=== PATIENT | female | born 1990 | race Caucasian/White ===

== ENCOUNTER → 2017-08-26 | Outpatient (REF) | payer OTHER | LOC: M SFHCLERA 10:57 | DX: R68.89 Other general symptoms and signs (principal) ==

== ENCOUNTER → 2018-08-26 | Outpatient (REF) | payer BC, OTHER | LOC: M LAB REF 12:33 | PROVIDERS: ATTEND Physician Assistant | DX: J02.9 Acute pharyngitis, unspecified (principal) ==

== ENCOUNTER → 2018-12-11 | Outpatient (REF) | payer BC | LOC: M SFHCLERA 16:37 | PROVIDERS: ATTEND Physician Assistant | DX: J02.9 Acute pharyngitis, unspecified (principal) ==

== ENCOUNTER 2019-06-19 09:35 | Emergency (ER) | payer BC ==
[~2019-06-19] VITALS: Ht 165.1 cm; Wt 98.8 kg
[2019-06-19] MEDS ORDERED: NORT1TAB3 (09:39)
[2019-06-19 10:52] LABS: BASO % 0.5 % (0.0-1.0); EOS # 0.6 10^3/uL (0.0-0.5); EOS % 7.5 % (0.0-3.0); HEMATOCRIT 46.1 % (36.0-47.0); HEMOGLOBIN 14.3 g/dl (12.0-15.5); LYMPH # 1.8 10^3/uL (1.5-5.0); LYMPH % 24.2 % (24.0-44.0); MEAN CORPUSCULAR HEMOGLOBIN 27.5 pg (27.0-33.0); MEAN CORPUSCULAR VOLUME 88.7 fl (80.0-96.0); MONO # 0.4 10^3/uL (0.0-0.8); MONO % 4.6 % (0.0-5.0); NEUTROPHILS # 4.7 10^3/uL (1.5-8.5); NEUTROPHILS % 62.8 % (36.0-66.0); PLATELET COUNT, AUTOMATED 391 10^3/uL (150-450); WHITE BLOOD COUNT 7.6 10^3/uL (4.0-10.0)
[2019-06-19 11:13] LABS: BLOOD UREA NITROGEN 15 MG/DL (7-18); CALCIUM LEVEL 9.1 MG/DL (8.5-10.1); CARBON DIOXIDE LEVEL 27 MEQ/L (21-32); CHLORIDE LEVEL 108 MEQ/L (98-107); CK-MB VALUE MASS < 1.0 NG/ML (<3.6); CPK CREATINE PHOSPHOKINASE 48 U/L (26-192); GLOMERULAR FILTRATION RATE > 60.0 (>60); GLUCOSE, FASTING 84 MG/DL (70-100); MB/CK RELATIVE INDEX 2.08 (< OR =4); POTASSIUM SERUM 4.6 MEQ/L (3.5-5.1); SODIUM LEVEL 143 MEQ/L (136-145); TROPONIN I < 0.02 NG/ML (< 0.10)
--- NOTE | 2019-06-19 11:19 | REP ---
Chest x-ray: Two views. History: Chest pain . Comparison study: No comparison . Findings: The lungs are well inflated and free of infiltrate. The pleural angles are sharp. The heart size is normal. Pulmonary vasculature is not increased. No significant bony abnormality is seen. Impression: Negative chest x-ray. Electronically Signed by Wilman Izaguirre MD 06/19/2019 11:10 A
[2019-06-19 11:21] LABS: HCG, SERUM QUALITATIVE NEGATIVE (NEGATIVE)
[2019-06-19] MEDS ORDERED: ISOVUE-370 76% 100ML VIAL (Q9967) As Ordered ONE (11:37)
--- NOTE | 2019-06-19 12:24 | REP ---
CT pulmonary angiogram: With IV contrast. History: Rule out pulmonary embolus. Comparison studies: No comparison chest CT. Comparison is made with today's chest x-ray. Contrast dose: 75 ML of Isovue [address] technique: Helical scanning is acquired and overlapping 1.5 mm and contiguous 3 mm axial images are reformatted. In addition, maximum intensity projection and multiplanar re-formation images are generated in sagittal and coronal imaging projections. CT pulmonary angiographic findings: There is good opacification of the pulmonary arterial tree. No vessel cutoff or filling defect is seen to suggest pulmonary embolism. Thoracic aorta enhances homogeneously and is morphologically intact. No pleural or pericardial effusion is seen. No hilar or mediastinal mass or adenopathy is observed. No infiltrate is seen. No pulmonary nodule or mass lesion is seen. No significant bony abnormality is appreciated. The visualized upper abdominal structures are unremarkable. No adrenal lesion is seen. Impression: No active disease. No CT evidence of pulmonary embolus. Electronically Signed by Wilman Izaguirre MD 06/19/2019 12:16 P
[2019-06-19 13:04] VITALS: BP 126/87
--- NOTE | 2019-06-19 22:10 | ECGEPIP ---
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
== END 2019-06-19 13:18 | disposition home or self-care (01) ==
LOC: M ED 09:35
DX: R07.89 Other chest pain (principal)
CPT/HCPCS: 71046; 71275; 80048; 82550; 82553; 84702; 84703; 85025; 85379; 93005; 99284; Q9967

== ENCOUNTER → 2019-06-20 | Outpatient (CLI) | payer BC ==
[~2019-06-20] MED LIST: NORT1TAB3
--- NOTE | 2019-06-20 14:02 | REP ---
Left foot series: Four views. History: Injury. Findings: Four views of the left foot demonstrate overall normal mineralization. No fracture or subluxation is seen. Impression: No fracture noted. Electronically Signed by Wilman Izaguirre MD 06/20/2019 01:53 P
== END ==
LOC: M LRY 13:27
PROVIDERS: ATTEND Nurse Practitioner Family
DX: S99.922A Unspecified injury of left foot, initial encounter (principal); X58.XXXA Exposure to other specified factors, initial encounter; Y92.89 Other specified places as the place of occurrence of the external cause

== ENCOUNTER → 2020-01-01 | Outpatient (CLI) | payer BC | LOC: M LABSMTC 11:58 | PROVIDERS: ATTEND Family Medicine | DX: Z01.818 Encounter for other preprocedural examination (principal); Z11.59 Encounter for screening for other viral diseases | CPT/HCPCS: C9803; U0003 ==

== ENCOUNTER → 2020-01-03 | Outpatient (REF) | payer BC | LOC: M SFHCPLAZ 10:20 | PROVIDERS: ATTEND Physician Assistant | DX: J02.9 Acute pharyngitis, unspecified (principal) ==

== ENCOUNTER → 2020-08-23 | Outpatient (REF) | payer OTHER | LOC: M LAB REF 16:22 | PROVIDERS: ATTEND Advanced Practice Midwife | DX: N39.0 Urinary tract infection, site not specified (principal) ==

== ENCOUNTER → 2020-09-13 | Outpatient (REF) | payer OTHER ==
[2020-09-13 14:40] LABS: ALT/SGPT 27 U/L (12-78); BILIRUBIN,TOTAL 1.5 MG/DL (0.2-1.0); BLOOD UREA NITROGEN 18 MG/DL (7-18); CALCIUM LEVEL 9.7 MG/DL (8.5-10.1); CARBON DIOXIDE LEVEL 28 MEQ/L (21-32); CHLORIDE LEVEL 103 MEQ/L (98-107); CREATININE FOR GFR 0.82 MG/DL (0.55-1.30); FERRITIN 22 NG/ML (8-252); GLOMERULAR FILTRATION RATE > 60.0 (>60); GLUCOSE, FASTING 86 MG/DL (70-100); IRON (FE) 233 UG/DL (50-170); PERCENT SATURATION 42.8 % (13.2-45.0); SODIUM LEVEL 137 MEQ/L (136-145); TOTAL IRON BINDING CAPACITY 544 UG/DL (250-450)
[2020-09-13 15:19] LABS: HEMOGLOBIN A1c 5.3 %
[2020-09-13 15:54] LABS: HEMATOCRIT 47.6 % (36.0-47.0); MEAN CORPUSCULAR HEMOGLOBIN 28.6 pg (27.0-33.0); MEAN CORPUSCULAR HGB CONC 31.5 g/dl (32.0-36.5); MEAN CORPUSCULAR VOLUME 90.7 fl (80.0-96.0); PLATELET COUNT, AUTOMATED 317 10^3/uL (150-450); RED BLOOD COUNT 5.25 10^6/uL (4.00-5.40); WHITE BLOOD COUNT 9.3 10^3/uL (4.0-10.0)
== END ==
LOC: M SFHCPLAZ 11:07
PROVIDERS: ATTEND Nurse Practitioner Adult Health
DX: Z00.00 Encounter for general adult medical examination without abnormal findings (principal); E28.2 Polycystic ovarian syndrome; Z13.29 Encounter for screening for other suspected endocrine disorder; R20.9 Unspecified disturbances of skin sensation

== ENCOUNTER → 2020-10-25 | Outpatient (REF) | payer OTHER | LOC: M LAB REF 16:32 | PROVIDERS: ATTEND Advanced Practice Midwife | DX: N39.0 Urinary tract infection, site not specified (principal) ==

== ENCOUNTER → 2021-01-12 | Outpatient (CLI) | payer OTHER ==
[~2021-01-12] MED LIST changes: +ALYA1TAB; +E-Z-GAS II EFFERVESCENT PACKET (SODIUM BICARB./CITRIC ACID/SIMETHICONE) As Ordered ONE; +E-Z-HD 98% w/w 340GM SUSP BTL As Ordered ONE; +E-Z-PAQUE 96% w/w SUSP 176GM BTL As Ordered ONE; +NITR100C2; +OMEP40CA5
== END ==
LOC: M RAD 09:02
PROVIDERS: ATTEND Nurse Practitioner Adult Health
DX: R10.13 Epigastric pain (principal)

== ENCOUNTER → 2021-01-24 | Outpatient (CLI) | payer OTHER ==
[~2021-01-24] MED LIST changes: -ALYA1TAB; -E-Z-GAS II EFFERVESCENT PACKET (SODIUM BICARB./CITRIC ACID/SIMETHICONE) As Ordered ONE; -E-Z-HD 98% w/w 340GM SUSP BTL As Ordered ONE; -E-Z-PAQUE 96% w/w SUSP 176GM BTL As Ordered ONE; -NITR100C2; -OMEP40CA5
[2021-01-24 16:37] LABS: HEMATOCRIT 43.8 % (36.0-47.0); MEAN CORPUSCULAR HEMOGLOBIN 28.9 pg (27.0-33.0); MEAN CORPUSCULAR VOLUME 90.5 fl (80.0-96.0); PLATELET COUNT, AUTOMATED 347 10^3/uL (150-450); RED BLOOD COUNT 4.84 10^6/uL (4.00-5.40); WHITE BLOOD COUNT 9.3 10^3/uL (4.0-10.0)
[2021-01-24 17:21] LABS: MAGNESIUM LEVEL 2.2 MG/DL (1.8-2.4); PERCENT SATURATION 28.9 % (13.2-45.0)
[2021-01-24 18:24] LABS: TOTAL 25(OH) VITAMIN D 22.3 NG/ML (30.0-100.0)
== END ==
LOC: M PLALAB 12:50
PROVIDERS: ATTEND Nurse Practitioner Adult Health
DX: Z13.21 Encounter for screening for nutritional disorder (principal); R79.0 Abnormal level of blood mineral; E28.2 Polycystic ovarian syndrome

== ENCOUNTER → 2021-03-16 | Outpatient (REF) | payer OTHER | LOC: M SFHCPLAZ 16:56 | PROVIDERS: ATTEND Physician Assistant | DX: R30.0 Dysuria (principal) ==

== ENCOUNTER → 2021-03-21 | Outpatient (CLI) | payer OTHER | LOC: M PLALAB 13:28 | PROVIDERS: ATTEND Physician Assistant | DX: R30.0 Dysuria (principal) ==

== ENCOUNTER → 2021-05-30 | Outpatient (REF) | payer OTHER | LOC: M SFHCPLAZ 17:03 | PROVIDERS: ATTEND Physician Assistant | DX: R39.9 Unspecified symptoms and signs involving the genitourinary system (principal) ==

== ENCOUNTER 2021-06-03 10:59 | Emergency (ER) | payer OTHER ==
[~2021-06-03] VITALS: Ht 165.1 cm; Wt 95.5 kg
[2021-06-03] MEDS ORDERED: NITR100C2 (11:06)
[2021-06-03] MEDS ORDERED: OMEP40CA5 (11:06)
[2021-06-03] MEDS ORDERED: ALYA1TAB (11:06)
[2021-06-03] MEDS ORDERED: LR 1,000 ML IV ONE (14:20)
[2021-06-03 14:27] LABS: BASO % 0.4 % (0.0-1.0); EOS # 0.4 10^3/uL (0.0-0.5); EOS % 3.9 % (0.0-3.0); HEMOGLOBIN 14.6 g/dl (12.0-15.5); LYMPH # 0.9 10^3/uL (1.5-5.0); LYMPH % 8.6 % (24.0-44.0); MEAN CORPUSCULAR HEMOGLOBIN 28.6 pg (27.0-33.0); MEAN CORPUSCULAR HGB CONC 31.7 g/dl (32.0-36.5); MONO # 0.5 10^3/uL (0.0-0.8); MONO % 4.8 % (2.0-8.0); NEUTROPHILS # 8.5 10^3/uL (1.5-8.5); NEUTROPHILS % 81.9 % (36.0-66.0); PLATELET COUNT, AUTOMATED 341 10^3/uL (150-450); RED BLOOD COUNT 5.11 10^6/uL (4.00-5.40); WHITE BLOOD COUNT 10.4 10^3/uL (4.0-10.0)
[2021-06-03 15:00] LABS: CK-MB VALUE MASS < 1.0 NG/ML (<3.6); CPK CREATINE PHOSPHOKINASE 34 U/L (26-192); MB/CK RELATIVE INDEX 2.94 (< OR =4)
[2021-06-03 15:07] LABS: ALBUMIN 3.6 GM/DL (3.2-5.2); ALT/SGPT 76 U/L (12-78); BILIRUBIN,DIRECT 0.2 MG/DL (0.0-0.2); BILIRUBIN,TOTAL 0.9 MG/DL (0.2-1.0); BLOOD UREA NITROGEN 8 MG/DL (7-18); CALCIUM LEVEL 8.7 MG/DL (8.5-10.1); CARBON DIOXIDE LEVEL 25 MEQ/L (21-32); CHLORIDE LEVEL 107 MEQ/L (98-107); GLOMERULAR FILTRATION RATE > 60.0 (>60); GLUCOSE, FASTING 92 MG/DL (70-100); LIPASE 111 U/L (73-393); NT-PRO BNP 101 PG/ML (<125); POTASSIUM SERUM 3.8 MEQ/L (3.5-5.1); SODIUM LEVEL 140 MEQ/L (136-145)
[2021-06-03 15:10] LABS: PARTIAL THROMBOPLASTIN TIME 29.5 SECONDS (25.9-37.0); PROTHROMBIN TIME 13.6 SECONDS (12.7-14.5)
[2021-06-03 15:13] LABS: D-DIMER QUANT 969.82 ng/ml (<500)
[2021-06-03] MEDS ORDERED: ISOVUE-370 76% 100ML VIAL As Ordered ONE (15:58)
[2021-06-03 17:26] VITALS: BP 125/81
== END 2021-06-03 17:28 | disposition home or self-care (01) ==
LOC: M ED 10:59
DX: R00.2 Palpitations (principal); R53.83 Other fatigue; R07.9 Chest pain, unspecified; R00.0 Tachycardia, unspecified; Z79.899 Other long term (current) drug therapy
CPT/HCPCS: 71045; 71275; 80047; 80048; 80076; 82550; 82553; 83690; 83880; 84484; 85025; 85379; 85610; 85730; 93005; 93041; 94760; 96360; 99284; Q9967

== ENCOUNTER → 2021-09-17 | Outpatient (CLI) | payer OTHER ==
[~2021-09-17] MED LIST changes: +ALYA1TAB; +NITR100C2; +OMEP40CA5
[2021-09-17 13:20] LABS: HEMATOCRIT 47.7 % (36.0-47.0); HEMOGLOBIN 15.6 g/dl (12.0-15.5); MEAN CORPUSCULAR HEMOGLOBIN 28.5 pg (27.0-33.0); MEAN CORPUSCULAR HGB CONC 32.7 g/dl (32.0-36.5); PLATELET COUNT, AUTOMATED 301 10^3/uL (150-450); RED BLOOD COUNT 5.48 10^6/uL (4.00-5.40); WHITE BLOOD COUNT 10.9 10^3/uL (4.0-10.0)
[2021-09-17 13:46] LABS: ALBUMIN 4.3 GM/DL (3.2-5.2); ALT/SGPT 57 U/L (12-78); BILIRUBIN,TOTAL 1.2 MG/DL (0.2-1.0); BLOOD UREA NITROGEN 18 MG/DL (7-18); CARBON DIOXIDE LEVEL 27 MEQ/L (21-32); CHLORIDE LEVEL 107 MEQ/L (98-107); CREATININE FOR GFR 0.83 MG/DL (0.55-1.30); FERRITIN 12 NG/ML (8-252); GLOMERULAR FILTRATION RATE > 60.0 (>60); GLUCOSE, FASTING 98 MG/DL (70-100); IRON (FE) 118 UG/DL (50-170); PERCENT SATURATION 26.9 % (13.2-45.0); POTASSIUM SERUM 4.7 MEQ/L (3.5-5.1); SODIUM LEVEL 139 MEQ/L (136-145); TOTAL IRON BINDING CAPACITY 438 UG/DL (250-450); TOTAL PROTEIN 8.2 GM/DL (6.4-8.2)
[2021-09-17 13:48] LABS: TOTAL 25(OH) VITAMIN D 29.9 NG/ML (30.0-100.0)
== END ==
LOC: M PLALAB 11:13
PROVIDERS: ATTEND Nurse Practitioner Adult Health
DX: E55.9 Vitamin D deficiency, unspecified (principal); Z00.00 Encounter for general adult medical examination without abnormal findings; R79.0 Abnormal level of blood mineral; Z13.29 Encounter for screening for other suspected endocrine disorder

== ENCOUNTER → 2021-11-07 | Outpatient (CLI) | payer OTHER ==
[2021-11-07 13:41] LABS: BASO # 0.1 10^3/uL (0.0-0.2); BASO % 0.6 % (0.0-1.0); EOS # 0.1 10^3/uL (0.0-0.5); EOS % 1.1 % (0.0-3.0); HEMATOCRIT 47.4 % (36.0-47.0); HEMOGLOBIN 15.1 g/dl (12.0-15.5); LYMPH # 1.6 10^3/uL (1.5-5.0); LYMPH % 19.3 % (24.0-44.0); MEAN CORPUSCULAR HEMOGLOBIN 28.7 pg (27.0-33.0); MEAN CORPUSCULAR HGB CONC 31.9 g/dl (32.0-36.5); MEAN CORPUSCULAR VOLUME 90.1 fl (80.0-96.0); MONO # 0.4 10^3/uL (0.0-0.8); MONO % 5.1 % (2.0-8.0); NEUTROPHILS # 5.9 10^3/uL (1.5-8.5); NEUTROPHILS % 73.7 % (36.0-66.0); PLATELET COUNT, AUTOMATED 339 10^3/uL (150-450); RED BLOOD COUNT 5.26 10^6/uL (4.00-5.40)
[2021-11-07 17:02] LABS: ALBUMIN 4.3 GM/DL (3.2-5.2); ALT/SGPT 41 U/L (12-78); BILIRUBIN,TOTAL 1.2 MG/DL (0.2-1.0); BLOOD UREA NITROGEN 14 MG/DL (7-18); CALCIUM LEVEL 10.3 MG/DL (8.5-10.1); CARBON DIOXIDE LEVEL 30 MEQ/L (21-32); CHLORIDE LEVEL 106 MEQ/L (98-107); CREATININE FOR GFR 0.68 MG/DL (0.55-1.30); GLOMERULAR FILTRATION RATE > 60.0 (>60); GLUCOSE, FASTING 96 MG/DL (70-100); POTASSIUM SERUM 4.7 MEQ/L (3.5-5.1); SODIUM LEVEL 141 MEQ/L (136-145); TOTAL PROTEIN 8.2 GM/DL (6.4-8.2)
[2021-11-07 17:14] LABS: MONO REFLEX EBV VCA IgM NEGATIVE (NEGATIVE)
== END ==
LOC: M PLALAB 11:05
PROVIDERS: ATTEND Physician Assistant
DX: J02.9 Acute pharyngitis, unspecified (principal); R10.11 Right upper quadrant pain

== ENCOUNTER → 2022-06-04 | Outpatient (CLI) | payer OTHER ==
[2022-06-04 18:15] LABS: HEMATOCRIT 46.1 % (36.0-47.0); HEMOGLOBIN 14.6 g/dl (12.0-15.5); MEAN CORPUSCULAR HEMOGLOBIN 27.7 pg (27.0-33.0); MEAN CORPUSCULAR HGB CONC 31.7 g/dl (32.0-36.5); MEAN CORPUSCULAR VOLUME 87.3 fl (80.0-96.0); PLATELET COUNT, AUTOMATED 331 10^3/uL (150-450); RED BLOOD COUNT 5.28 10^6/uL (4.00-5.40); WHITE BLOOD COUNT 9.7 10^3/uL (4.0-10.0)
[2022-06-04 18:29] LABS: HEMOGLOBIN A1c 5.4 % (4.0-6.0)
[2022-06-04 19:01] LABS: ALBUMIN 4.1 G/DL (3.2-5.2); CARBON DIOXIDE LEVEL 28 MMOL/L (20-31); CHLORIDE LEVEL 102 MMOL/L (98-107); POTASSIUM SERUM 5.2 MMOL/L (3.5-5.1); SODIUM LEVEL 140 MMOL/L (136-145)
[2022-06-04 19:06] LABS: BLOOD UREA NITROGEN 21 MG/DL (9-23); CALCIUM LEVEL 9.9 MG/DL (8.5-10.1); GLUCOSE, FASTING 80 MG/DL (60-100)
[2022-06-04 19:07] LABS: ALKALINE PHOSPHATASE 79 U/L (46-116); BILIRUBIN,TOTAL 1.2 MG/DL (0.3-1.2); MAGNESIUM LEVEL 2.1 MG/DL (1.8-2.4); TOTAL PROTEIN 7.9 G/DL (5.7-8.2)
[2022-06-04 19:08] LABS: ALT/SGPT 29 U/L (7.0-40); AST/SGOT 26 U/L (<34)
[2022-06-04 19:09] LABS: CREATININE FOR GFR 0.69 MG/DL (0.55-1.30); GLOMERULAR FILTRATION RATE > 60.0 (>60)
[2022-06-04 19:14] LABS: THYROXINE (T4) 8.2 UG/DL (4.5-10.9)
[2022-06-04 19:15] LABS: T UPTAKE 36.2 % (22.5-37.0); THYROID STIMULATING HORMONE 2.686 uIU/ML (0.55-4.78); TOTAL 25(OH) VITAMIN D 41.3 NG/ML (20.0-100.0)
[2022-06-04 19:17] LABS: VITAMIN B12 LEVEL 711 PG/ML (211-911)
== END ==
LOC: M PLALAB 16:00
PROVIDERS: ATTEND Nurse Practitioner Adult Health
DX: E28.2 Polycystic ovarian syndrome (principal); E55.9 Vitamin D deficiency, unspecified; R68.89 Other general symptoms and signs; Z13.29 Encounter for screening for other suspected endocrine disorder; Z13.21 Encounter for screening for nutritional disorder

== ENCOUNTER → 2022-10-07 | Outpatient (CLI) | payer OTHER ==
[2022-10-07 14:29] LABS: IRON (FE) 92 UG/DL (50-170); PERCENT SATURATION 23.9 % (13.2-45.0); TOTAL IRON BINDING CAPACITY 385 UG/DL (250-425)
[2022-10-07 14:35] LABS: HEMATOCRIT 41.8 % (36.0-47.0); HEMOGLOBIN 13.3 g/dl (12.0-15.5); MEAN CORPUSCULAR HEMOGLOBIN 27.8 pg (27.0-33.0); MEAN CORPUSCULAR HGB CONC 31.8 g/dl (32.0-36.5); MEAN CORPUSCULAR VOLUME 87.4 fl (80.0-96.0); PLATELET COUNT, AUTOMATED 354 10^3/uL (150-450); RED BLOOD COUNT 4.78 10^6/uL (4.00-5.40); WHITE BLOOD COUNT 8.5 10^3/uL (4.0-10.0)
[2022-10-07 14:36] LABS: HEMOGLOBIN A1c 5.5 % (4.0-6.0)
[2022-10-07 15:51] LABS: ALBUMIN 3.7 G/DL (3.2-5.2); ALKALINE PHOSPHATASE 68 U/L (46-116); ALT/SGPT 32 U/L (7.0-40); AST/SGOT 26 U/L (<34); BILIRUBIN,TOTAL 1.4 MG/DL (0.3-1.2); BLOOD UREA NITROGEN 13 MG/DL (9-23); CARBON DIOXIDE LEVEL 29 MMOL/L (20-31); CHLORIDE LEVEL 102 MMOL/L (98-107); CREATININE FOR GFR 0.68 MG/DL (0.55-1.30); GLOMERULAR FILTRATION RATE > 60.0 (>60); GLUCOSE, FASTING 92 MG/DL (60-100); MAGNESIUM LEVEL 1.7 MG/DL (1.8-2.4); POTASSIUM SERUM 3.9 MMOL/L (3.5-5.1); SODIUM LEVEL 137 MMOL/L (136-145); THYROID STIMULATING HORMONE 4.046 uIU/ML (0.55-4.78)
[2022-10-07 16:23] LABS: FERRITIN 6.9 NG/ML (7.3-270.7)
[2022-10-07 18:47] LABS: TOTAL PROTEIN 7.1 G/DL (5.7-8.2)
== END ==
LOC: M WUC 09:54
PROVIDERS: ATTEND Nurse Practitioner Adult Health
DX: E28.2 Polycystic ovarian syndrome (principal); R68.89 Other general symptoms and signs; R79.0 Abnormal level of blood mineral; Z13.21 Encounter for screening for nutritional disorder; Z13.29 Encounter for screening for other suspected endocrine disorder

== ENCOUNTER → 2023-02-11 | Outpatient (CLI) | payer OTHER ==
[2023-02-11 10:43] LABS: HEMATOCRIT 46.3 % (36.0-47.0); HEMOGLOBIN 14.6 g/dl (12.0-15.5); MEAN CORPUSCULAR HEMOGLOBIN 27.7 pg (27.0-33.0); MEAN CORPUSCULAR HGB CONC 31.5 g/dl (32.0-36.5); MEAN CORPUSCULAR VOLUME 87.7 fl (80.0-96.0); PLATELET COUNT, AUTOMATED 264 10^3/uL (150-450); RED BLOOD COUNT 5.28 10^6/uL (4.00-5.40); WHITE BLOOD COUNT 5.9 10^3/uL (4.0-10.0)
[2023-02-11 10:54] LABS: HEMOGLOBIN A1c 5.4 % (4.0-6.0)
[2023-02-11 11:23] LABS: ALKALINE PHOSPHATASE 64 U/L (46-116); ALT/SGPT 27 U/L (7.0-40); AST/SGOT 16 U/L (<34); BILIRUBIN,TOTAL 2.4 MG/DL (0.3-1.2); BLOOD UREA NITROGEN 17 MG/DL (9-23); CARBON DIOXIDE LEVEL 27 MMOL/L (20-31); CHLORIDE LEVEL 106 MMOL/L (98-107); CREATININE FOR GFR 0.77 MG/DL (0.55-1.30); GLOMERULAR FILTRATION RATE > 60.0 (>60); GLUCOSE, FASTING 82 MG/DL (60-100); IRON (FE) 104 UG/DL (50-170); POTASSIUM SERUM 4.7 MMOL/L (3.5-5.1); SODIUM LEVEL 138 MMOL/L (136-145); TOTAL PROTEIN 7.5 G/DL (5.7-8.2)
[2023-02-11 11:25] LABS: FERRITIN 21.2 NG/ML (7.3-270.7); THYROID STIMULATING HORMONE 4.775 uIU/ML (0.55-4.78); THYROXINE (T4) 8.2 UG/DL (4.5-10.9)
[2023-02-11 11:26] LABS: FREE THYROXINE INDEX 2.8 % (1.3-4.8); T UPTAKE 33.6 % (22.5-37.0)
[2023-02-11 11:29] LABS: THYROID PEROXIDASE ANTIBODY 183 U/ML (<60.0)
== END ==
LOC: M WUC 08:27
PROVIDERS: ATTEND Nurse Practitioner Adult Health
DX: E28.2 Polycystic ovarian syndrome (principal); R79.0 Abnormal level of blood mineral; R68.89 Other general symptoms and signs; L65.9 Nonscarring hair loss, unspecified; K59.00 Constipation, unspecified

== ENCOUNTER → 2023-10-06 | Outpatient (CLI) | payer OTHER ==
[2023-10-06 13:21] LABS: HEMATOCRIT 43.8 % (36.0-47.0); MEAN CORPUSCULAR HEMOGLOBIN 29.1 pg (27.0-33.0); MEAN CORPUSCULAR VOLUME 91.1 fl (80.0-96.0); PLATELET COUNT, AUTOMATED 308 10^3/uL (150-450); RED BLOOD COUNT 4.81 10^6/uL (4.00-5.40); WHITE BLOOD COUNT 5.3 10^3/uL (4.0-10.0)
[2023-10-06 13:41] LABS: HEMOGLOBIN A1c 5.3 % (4.0-6.0)
[2023-10-06 14:31] LABS: IRON (FE) 100 UG/DL (50-170)
[2023-10-06 14:32] LABS: ALBUMIN 4.1 G/DL (3.2-5.2); ALKALINE PHOSPHATASE 65 U/L (46-116); ALT/SGPT 32 U/L (7.0-40); AST/SGOT 26 U/L (<34); BILIRUBIN,TOTAL 2.1 MG/DL (0.3-1.2); BLOOD UREA NITROGEN 17 MG/DL (9-23); CALCIUM LEVEL 9.8 MG/DL (8.5-10.1); CARBON DIOXIDE LEVEL 30 MMOL/L (20-31); CHLORIDE LEVEL 104 MMOL/L (98-107); CREATININE FOR GFR 0.67 MG/DL (0.55-1.30); GLOMERULAR FILTRATION RATE > 60.0 (>60); GLUCOSE, FASTING 84 MG/DL (60-100); POTASSIUM SERUM 4.1 MMOL/L (3.5-5.1); SODIUM LEVEL 137 MMOL/L (136-145); THYROID STIMULATING HORMONE 3.128 uIU/ML (0.55-4.78); THYROXINE (T4) 9.1 UG/DL (4.5-10.9); TOTAL IRON BINDING CAPACITY 371 UG/DL (250-425); TOTAL PROTEIN 7.3 G/DL (5.7-8.2)
[2023-10-06 14:33] LABS: FREE T4 1.11 NG/DL (0.89-1.76); THYROID PEROXIDASE ANTIBODY 238 U/ML (<60.0)
[2023-10-06 14:34] LABS: FERRITIN 24.4 NG/ML (7.3-270.7); FREE THYROXINE INDEX 3.3 % (1.3-4.8); T UPTAKE 36.1 % (22.5-37.0); TOTAL 25(OH) VITAMIN D 28.3 NG/ML (20.0-100.0)
[2023-10-08 08:11] LABS: INSULIN LEVEL 4.1 uIU/mL (2.6-24.9); THYROID STIMULATING IMMUNOGLOB <0.10 IU/L (0.00-0.55)
== END ==
LOC: M PLALAB 10:19
PROVIDERS: ATTEND Nurse Practitioner Adult Health
DX: E28.2 Polycystic ovarian syndrome (principal); R68.89 Other general symptoms and signs; L65.9 Nonscarring hair loss, unspecified; K59.00 Constipation, unspecified; R79.0 Abnormal level of blood mineral; E55.9 Vitamin D deficiency, unspecified

== ENCOUNTER → 2023-10-24 | Outpatient (CLI) | payer OTHER | LOC: M WHC 11:28 | PROVIDERS: ATTEND Nurse Practitioner Adult Health | DX: R22.1 Localized swelling, mass and lump, neck (principal) ==

== ENCOUNTER → 2024-10-06 | Outpatient (CLI) | payer OTHER ==
[2024-10-06 15:45] LABS: HEMATOCRIT 45.2 % (36.0-47.0); HEMOGLOBIN 14.6 g/dl (12.0-15.5); MEAN CORPUSCULAR HEMOGLOBIN 28.9 pg (27.0-33.0); MEAN CORPUSCULAR HGB CONC 32.3 g/dl (32.0-36.5); MEAN CORPUSCULAR VOLUME 89.5 fl (80.0-96.0); PLATELET COUNT, AUTOMATED 259 10^3/uL (150-450); RED BLOOD COUNT 5.05 10^6/uL (4.00-5.40); WHITE BLOOD COUNT 6.2 10^3/uL (4.0-10.0)
[2024-10-06 16:10] LABS: FERRITIN 22.3 NG/ML (7.3-270.7); FREE T4 1.24 NG/DL (0.89-1.76)
[2024-10-06 16:14] LABS: IRON (FE) 131 UG/DL (50-170)
[2024-10-06 16:16] LABS: ALKALINE PHOSPHATASE 55 U/L (35-104); ALT/SGPT 21 U/L (7.0-40); AST/SGOT 19 U/L (<34); BILIRUBIN,TOTAL 2.3 MG/DL (0.3-1.2); BLOOD UREA NITROGEN 15 MG/DL (9-23); CALCIUM LEVEL 9.8 MG/DL (8.5-10.1); CARBON DIOXIDE LEVEL 27 MMOL/L (20-31); CHLORIDE LEVEL 107 MMOL/L (98-107); CHOLESTEROL LEVEL 222 MG/DL (<200); CHOLESTEROL RISK RATIO 3.14 (<5); CREATININE FOR GFR 0.73 MG/DL (0.55-1.30); GLOMERULAR FILTRATION RATE > 60.0 (>60); GLUCOSE, FASTING 86 MG/DL (60-100); HDL CHOLESTEROL 70.7 MG/DL (>40); LDL CHOLESTEROL 138.1 MG/DL (<100); NON-HDL-C 151.3 MG/DL; POTASSIUM SERUM 4.7 MMOL/L (3.5-5.1); SODIUM LEVEL 142 MMOL/L (136-145); TOTAL PROTEIN 7.8 G/DL (5.7-8.2); TRIGLYCERIDES LEVEL 66 MG/DL (<150)
== END ==
LOC: M WUC 10:40
PROVIDERS: ATTEND Nurse Practitioner Adult Health
DX: Z00.00 Encounter for general adult medical examination without abnormal findings (principal); E55.9 Vitamin D deficiency, unspecified; D50.9 Iron deficiency anemia, unspecified; E78.5 Hyperlipidemia, unspecified; E06.3 Autoimmune thyroiditis

== ENCOUNTER → 2025-02-10 | Outpatient (REF) | payer OTHER ==
[2025-02-12 12:27] LABS: HPV APTIMA Not Detected (Not Detected)
== END ==
LOC: M PLALAB 10:12
PROVIDERS: ATTEND Advanced Practice Midwife
DX: Z12.4 Encounter for screening for malignant neoplasm of cervix (principal)
CPT/HCPCS: 87624; G0123